=== PATIENT | female | born 1985 | race Caucasian/White ===

== ENCOUNTER → 2017-08-20 07:48 | Outpatient (CLI) | payer OTHER, SELFPAY ==
--- NOTE | 2017-08-20 | DI.US.S_ITS ---
PROCEDURE: US OB LIMITED INDICATIONS: MARGINAL PLECENTA PREVIA OUTSIDE/PRIOR DATING DATA: Last menstrual period (LMP): 01/29/18. LMP-based estimated date of delivery (MARCUS): 11/05/17 First dating scan (date and location): 06/24/17. Estimated date of delivery (MARCUS) from first dating scan: 11/04/17. TECHNIQUE: Real-time scanning was performed of the fetus, with image documentation and biometric measurements. Endovaginal scanning: No COMPARISON: Outside Facility, RG, US OB COMPLETE, 06/24/2017, 13:12. FINDINGS: General: A single living intrauterine gestation is present. Presentation: Vertex. Placenta: Placental position is posterior, without previa. Amniotic fluid index: 16.9 cm, normal range is 5-24 cm. heart rate: 149 beats per minute. Maternal cervical canal: 2.7 cm long. Normal lower limit is 2.5 cm. IMPRESSION: 1. Single living IUP redemonstrated. 2. Resolution of marginal placenta previa with the inferior edge of the placenta roughly 5 cm above the internal cervical os. Dictated by: Dhruv Aguiar [facility] Interpreted: Nneka Stephen MD on 08/20/2017 at 11:15 Approved by: Nneka Stephen M.D. on 08/20/2017 at 15:08
== END ==
PROVIDERS: Visit Provider Midwife
DX: O44.23 Partial placenta previa NOS or without hemorrhage, third trimester (principal)
CPT/HCPCS: 76815